=== PATIENT | male | born 1995 | race Caucasian/White ===

== ENCOUNTER 2019-08-22 17:52 | Emergency (ER) | payer BC, MEDICAID ==
[~2019-08-22] VITALS: Ht 170.2 cm; Wt 70.0 kg
[2019-08-22] MEDS ORDERED: IBUPROFEN 600MG TABLET PO STA (19:14)
[2019-08-22 21:37] VITALS: BP 139/84
== END 2019-08-22 21:39 | disposition home or self-care (01) ==
LOC: ER 17:52
DX: S39.012A Strain of muscle, fascia and tendon of lower back, initial encounter (principal); M25.522 Pain in left elbow; V49.49XA Driver injured in collision with other motor vehicles in traffic accident, initial encounter; Y93.89 Activity, other specified; Y92.89 Other specified places as the place of occurrence of the external cause; Y99.8 Other external cause status
CPT/HCPCS: 72100; 73060; 73080; 73090; 99283; A4565